=== PATIENT | female | born 1995 | race Caucasian/White ===

== ENCOUNTER 2019-08-13 19:19 | Emergency (ER) | payer BC ==
[~2019-08-13] VITALS: Ht 160 cm; Wt 70.0 kg
[2019-08-13 19:33] VITALS: TEMP 99
[2019-08-13] MEDS ORDERED: LAMICTAL 100MG100 MG PO (19:36)
[2019-08-13 20:37] LABS: COLLECTION METHOD CLEAN CATCH
[2019-08-13 20:45] LABS: MUCOUS Present /lpf; PH 7 (5-8); SQUAMOUS EPITHELIAL 0-2 /hpf; URINE APPEARANCE Clear; URINE BACTERIA None Seen /hpf; URINE BILIRUBIN Negative (NEGATIVE); URINE BLOOD Negative (NEGATIVE); URINE COLOR Straw; URINE GLUCOSE Negative (NEGATIVE); URINE KETONE Negative (NEGATIVE); URINE LEUKOCYTE ESTERASE Negative (NEGATIVE); URINE NITRATE Negative (NEGATIVE); URINE PROTEIN(semi-quant) Negative (NEGATIVE); URINE RBC 0-2 /hpf; URINE UROBILINOGEN Negative (NEGATIVE)
[2019-08-13 21:15] LABS: BASO % 0.5 % (0.0-2.0); EOS # 0.1 (0.0-0.7); GRAN # 2.6 (1.4-6.5); GRAN % 46.5 % (42.2-75.2); HEMATOCRIT 38.8 % (37.0-47.0); HEMOGLOBIN 12.8 g/dl (12.5-16.0); LYMPH # 2.5 (1.2-3.4); LYMPH % 44.2 % (20.0-51.0); MEAN CELL VOLUME 88 fl (80.0-100.0); MEAN CORPUSCULAR HEMOGLOBIN 29 pg (27.0-31.0); MEAN CORPUSCULAR HGB CONC 33 g/dl (33.0-37.0); MEAN PLATELET VOLUME 11.1 fl (7.4-10.4); MONO # 0.4 (0.1-0.6); MONO % 6.4 % (1.7-9.3); PLATELET COUNT 219 K/mm3 (130-400); RED BLOOD COUNT 4.39 M/mm3 (4.10-5.30); REDCELL DISTRIBUTION WIDTH-CV 12.6 % (11.5-14.5)
[2019-08-13 21:55] LABS: MONOSCREEN NEGATIVE
[2019-08-13 22:02] LABS: ALANINE AMINOTRANSFERASE 17 U/L (9-52); ALBUMIN 4.9 gm/dL (3.5-5.0); ALKALINE PHOSPHATASE 70 U/L (50-136); ANION GAP 10 mmol/L (7-16); AST,SGOT 24 U/L (15-37); BILIRUBIN,TOTAL 0.6 mg/dL (0.0-1.0); BLOOD UREA NITROGEN 10 mg/dL (7-17); CALCIUM 9.5 mg/dL (8.4-10.2); CARBON DIOXIDE 27 mmol/L (22-30); CHLORIDE 103 mmol/L (98-107); CREATININE, serum 0.68 (0.52-1.25); GLUCOSE 84 mg/dL (74-106); POTASSIUM 3.8 mmol/L (3.4-5.0); SODIUM 139 mmol/L (137-145); TOTAL PROTEIN 8.2 gm/dL (6.4-8.2)
[2019-08-13 22:13] LABS: C-REACTIVE PROTEIN < 0.5 mg/dL (0.0-0.9)
[2019-08-13 22:18] VITALS: BP 117/71; PULSE 71
== END 2019-08-13 22:20 | disposition home or self-care (01) ==
LOC: COL.ER 19:19
PROVIDERS: Family Medicine; Physician Assistant
DX: R53.81 Other malaise (principal); R53.82 Chronic fatigue, unspecified; J45.909 Unspecified asthma, uncomplicated; F31.9 Bipolar disorder, unspecified
CPT/HCPCS: J2405; J7030

== ENCOUNTER → 2020-07-21 | Outpatient (CLI) | payer BC ==
[~2020-07-21] MED LIST: LAMICTAL 100MG100 MG PO
== END ==
LOC: ZCOL.LAB 16:39
DX: U07.1 COVID-19 (principal)

== ENCOUNTER 2020-09-14 14:15 | Emergency (ER) | payer BC ==
[~2020-09-14] VITALS: Ht 160 cm; Wt 65.9 kg
[2020-09-14 14:21] VITALS: TEMP 98.6
[2020-09-14 15:18] LABS: BASO % 0.5 % (0.0-2.0); EOS # 0.2 (0.0-0.7); EOS % 3.6 % (0-4.0); GRAN # 2.5 (1.4-6.5); GRAN % 45.1 % (42.2-75.2); HEMATOCRIT 37.1 % (37.0-47.0); LYMPH # 2.4 (1.2-3.4); LYMPH % 44.4 % (20.0-51.0); MEAN CELL VOLUME 84 fl (80.0-100.0); MEAN CORPUSCULAR HEMOGLOBIN 27 pg (27.0-31.0); MEAN CORPUSCULAR HGB CONC 32 g/dl (33.0-37.0); MEAN PLATELET VOLUME 10.6 fl (7.4-10.4); MONO # 0.3 (0.1-0.6); PLATELET COUNT 270 K/mm3 (130-400); REDCELL DISTRIBUTION WIDTH-CV 17.8 % (11.5-14.5)
[2020-09-14 15:33] LABS: ALANINE AMINOTRANSFERASE 11 U/L (4-34); ALBUMIN 4.8 gm/dL (3.5-5.0); ALKALINE PHOSPHATASE 72 U/L (50-136); ANION GAP 10 mmol/L (7-16); AST,SGOT 20 U/L (15-37); BILIRUBIN,TOTAL 0.4 mg/dL (0.0-1.0); BLOOD UREA NITROGEN 9 mg/dL (7-17); CALCIUM 9.2 mg/dL (8.4-10.2); CARBON DIOXIDE 26 mmol/L (22-30); CHLORIDE 103 mmol/L (98-107); CREATININE, serum 0.61 (0.52-1.25); GLUCOSE 85 mg/dL (74-106); POTASSIUM 3.6 mmol/L (3.4-5.0); SODIUM 139 mmol/L (137-145); TOTAL PROTEIN 7.9 gm/dL (6.4-8.2)
[2020-09-14 15:48] LABS: C-REACTIVE PROTEIN < 0.5 mg/dL (0.0-0.9); TROPONIN-I < 0.012 ng/mL (0.000-0.035)
[2020-09-14 16:36] VITALS: BP 113/74; PULSE 74
== END 2020-09-14 16:39 | disposition home or self-care (01) ==
LOC: COL.ER 14:15
PROVIDERS: Emergency Medicine
DX: R07.9 Chest pain, unspecified (principal); R51.9 Headache, unspecified; Z86.19 Personal history of other infectious and parasitic diseases; Z32.02 Encounter for pregnancy test, result negative; Z79.899 Other long term (current) drug therapy
CPT/HCPCS: J7030

== ENCOUNTER → 2020-10-20 | Outpatient (CLI) | payer BC ==
[~2020-10-20] MED LIST changes: +ADDERALL10 MG PO; +ATARAX 10MG10 MG/TAB PO; +BUSPAR10 MG PO; +LAMICTAL150 MG PO; +POLY-IRON 150150 MG PO; +PROAMATINE 5MG T5 MG PO; +SINGULAIR 110 MG/TAB PO; +VITAMIN C500 MG PO; +VITAMIND3 5000 PO
== END ==
LOC: COL.LAB 08:00 → COL.CAR 10-26 07:45
DX: U07.1 COVID-19 (principal)

== ENCOUNTER 2020-11-27 08:12 | Outpatient (CLI) | payer BC ==
[~2020-11-27] VITALS: Ht 160 cm; Wt 66.5 kg
[~2020-11-27 08:12] MED LIST changes: -ADDERALL10 MG PO; -ATARAX 10MG10 MG/TAB PO; -BUSPAR10 MG PO; -LAMICTAL150 MG PO; -POLY-IRON 150150 MG PO; -PROAMATINE 5MG T5 MG PO; -SINGULAIR 110 MG/TAB PO; -VITAMIN C500 MG PO; -VITAMIND3 5000 PO
[2020-11-27 08:44] VITALS: BP 117/74; PULSE 86; TEMP 98.6
[2020-11-27] MEDS ORDERED: BUSPAR10 MG PO (08:50)
[2020-11-27] MEDS ORDERED: ADDERALL10 MG PO (08:51)
[2020-11-27] MEDS ORDERED: LAMICTAL150 MG PO (08:52)
[2020-11-27] MEDS ORDERED: ATARAX 10MG10 MG/TAB PO (08:52)
[2020-11-27] MEDS ORDERED: SINGULAIR 110 MG/TAB PO (08:53)
[2020-11-27] MEDS ORDERED: VITAMIN C500 MG PO (08:54)
[2020-11-27] MEDS ORDERED: POLY-IRON 150150 MG PO (08:55)
[2020-11-27] MEDS ORDERED: VITAMIND3 5000 PO (08:55)
[2020-11-27] MEDS ORDERED: PROAMATINE 5MG T5 MG PO (12:02)
[2020-11-27 12:14] VITALS: BP 108/72; PULSE 85
--- NOTE | 2020-11-27 12:15 | NUR ---
INT DC'd with catheter intact. Pt c/o feeling slightly nauseated, but denies need for medication, stating, "No I'm fine. Just ready to go home." Gait steady in room. Pt is escorted out ambulatory.
== END 2020-11-27 12:28 | disposition home or self-care (01) ==
LOC: COL.CAR 08:12
DX: R42 Dizziness and giddiness (principal); U07.1 COVID-19; I34.0 Nonrheumatic mitral (valve) insufficiency